=== PATIENT | male | born 1950 | race Caucasian/White ===

== ENCOUNTER 2024-01-23 07:56 | Outpatient (RCR) | payer MEDICARE, MEDICAID, SELFPAY | END 2024-01-26 23:59 | disposition home or self-care (01) | LOC: SCTC 07:56 | PROVIDERS: PCP Nurse Practitioner Primary Care; Referring Provider Nurse Practitioner Primary Care; Visit Provider Radiology Therapeutic Radiology | DX: Z51.0 Encounter for antineoplastic radiation therapy (principal); C61 Malignant neoplasm of prostate; R35.0 Frequency of micturition; R51.9 Headache, unspecified; R35.1 Nocturia | CPT/HCPCS: 77336; 77385 ==

== ENCOUNTER 2024-02-26 07:48 | Outpatient (RCR) | payer MEDICARE, MEDICAID, SELFPAY ==
--- NOTE | 2024-01-28 12:12 | CTCTRTNOTE_ITS ---
[facility] [address] [place], [place] [address] Weekly Management Date: 01/28/2024 ?? Name: ALEC ROGER DunnB.: 1950 Account #: ?? A. Patient is currently at 3060 cGy. B. Patient is tolerating treatment well. C. Patient is having the following side effects: Minor pelvic symptoms . D. . Machine down today E. Resume radiation therapy. After fix Electronically signed by: Florentino Nazario M.D. 01/28/2024 12:09 PM
--- NOTE | 2024-01-28 12:13 | CTCSNOTE_ITS ---
[facility] [address] [place], [place] [address] CT Simulation Note Date: 01/28/2024 MR# [id number] Name: ALEC DURAN : 1950 (A) DIAGNOSIS: C61 Malignant neoplasm of prostate (B) Patient was placed in supine position and used vaklok for immobilization purposes. (C) CT slices included pelvis VMAT Will be needed for maximum sparing of adjacent normal critical structures. (D) Patient tolerated the simulation well and left the room in good condition. Electronically signed by: Florentino Nazario MD, FINNR 01/28/2024 12:11 PM
== END 2024-02-26 23:59 | disposition home or self-care (01) ==
LOC: SCTC 07:48
PROVIDERS: PCP Nurse Practitioner Primary Care; Referring Provider Nurse Practitioner Primary Care; Visit Provider Radiology Therapeutic Radiology
DX: Z51.0 Encounter for antineoplastic radiation therapy (principal); C61 Malignant neoplasm of prostate; M54.9 Dorsalgia, unspecified; R30.0 Dysuria
CPT/HCPCS: 77014; 77290; 77300; 77301; 77336; 77338; 77385

== ENCOUNTER 2024-02-29 07:55 | Outpatient (RCR) | payer MEDICARE, MEDICAID, SELFPAY | END 2024-03-28 23:59 | disposition home or self-care (01) | LOC: SCTC 07:55 | PROVIDERS: PCP Nurse Practitioner Primary Care; Referring Provider Nurse Practitioner Primary Care; Visit Provider Radiology Therapeutic Radiology | DX: Z51.0 Encounter for antineoplastic radiation therapy (principal); C61 Malignant neoplasm of prostate | CPT/HCPCS: 77385 ==

== ENCOUNTER 2024-04-02 13:57 | Outpatient (RCR) | payer MEDICARE, MEDICAID, SELFPAY ==
--- NOTE | 2024-04-02 14:43 | CTCTSUMM_ITS ---
[facility] [address] [place], [place] [address] Treatment Summary Date: 04/02/2024 MR#: [id number] Name: ALEC DURAN : 1950 Dx: C61 Referring Physician: Raudel Carrizales MD (A) Diagnosis: [ICD10] C61 Malignant neoplasm of prostate (B) Aim of Treatment: ??Curative (C) Concomitant Chemotherapy: No (D) Radiation Dates: 12/31/2023 through 02/29/2024 Treatment Prescription prostate sv boost VMAT 10MV 2,700 cGy 15 180 cGy Approved pelvis VMAT 10MV 4,500 cGy 25 180 cGy Approved (E) All walker were treated using customized MLC Blocks (F) Finding at Discharge: Patient has some mild pelvic symptoms but generally improving after first follow-up (G) Discharge Instructions and F/U Appt was given: The patient was also advised to continue follow-up with Dr. Carrizales and primary care physician: Electronically signed by: Florentino Nazario MD, FINNR 04/02/2024 2:41 PM
== END 2024-04-25 23:59 | disposition home or self-care (01) ==
LOC: SCTC 13:57
PROVIDERS: PCP Nurse Practitioner Primary Care; Referring Provider Nurse Practitioner Primary Care; Visit Provider Radiology Therapeutic Radiology
DX: C61 Malignant neoplasm of prostate (principal); Z92.3 Personal history of irradiation
CPT/HCPCS: 99212; G0463

== ENCOUNTER → 2024-06-04 | Outpatient (CLI) | payer MEDICARE, MEDICAID, SELFPAY ==
[2024-06-04 12:31] LABS: Prostate Specific Antigen 0.14 ng/mL (0-4.00)
== END | disposition home or self-care (01) ==
LOC: COPL 11:17
PROVIDERS: Referring Provider Surgery; Visit Provider Surgery
DX: C61 Malignant neoplasm of prostate (principal)
CPT/HCPCS: 36415; 84153

== ENCOUNTER 2024-10-08 13:57 | Outpatient (RCR) | payer MEDICARE, MEDICAID, SELFPAY ==
--- NOTE | 2024-10-08 14:41 | CTCFLWUP_ITS ---
[facility] [address] [place], [place] [address] FOLLOW-UP NOTE Date: 10/08/2024 MR#: [id number] Name: ALEC DURAN : 1950 Dx: C61 Malignant neoplasm of prostate Identification. 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 Patient has been getting monthly Lupron injections under Dr. Carrizales's direction. Patient having mild hot flashes type symptoms otherwise tolerating well. Has no significant pelvic symptoms since radiation therapy completed. Told patient that he can see me again on a as needed basis as patient is being watched closely and monthly by Dr. Carrizales. Electronically signed by: Florentino Nazario M.D. 10/08/2024 2:39 PM
== END 2024-10-26 23:59 | disposition home or self-care (01) ==
LOC: SCTC 13:57
PROVIDERS: PCP Nurse Practitioner Primary Care; Referring Provider Nurse Practitioner Primary Care; Visit Provider Radiology Therapeutic Radiology
DX: C61 Malignant neoplasm of prostate (principal); Z79.818 Long term (current) use of other agents affecting estrogen receptors and estrogen levels
CPT/HCPCS: 99213; G0463